=== PATIENT | female | born 1980 | race African-American/Black ===

== ENCOUNTER 2017-05-22 18:11 | Inpatient (IN) | payer MEDICAID ==
[~2017-05-22] VITALS: Ht 162.6 cm; Wt 47.7 kg
[~2017-05-22 18:11] MED LIST: HYDR-1421
[2017-05-22 20:12] LABS: Basophils # (auto) 0.1 uL; Eosinophils # (auto) 0 uL; Hemoglobin 10.7 g/dL (12.2-16.2); Lymphocytes # (auto) 1.2 uL; Mean Corpuscular Hgb Conc. 34.6 g/dL (32.0-36.0); Monocytes # (auto) 0.6 uL; Nucleated Red Blood Cells % 0.2 %; Platelet Count (auto) 420 10^3/uL (140-450)
[2017-05-22 20:14] LABS: Basophils % (auto) 0.9 % (0.0-2.0); Hematocrit 30.9 % (36.0-46.0); Lymphocytes % (auto) 14.3 % (10.0-50.0); Mean Corpuscular Hemoglobin 36.2 pg (28.0-32.0); Mean Corpuscular Volume 104.6 fL (80.0-100.0); Monocytes % (auto) 7.8 % (0.0-12.0); Neutrophils # (auto) 6.3 uL; Red Blood Cells 2.96 10^6/uL (4.0-5.20); Red Cell Distribution Width 13.7 % (11.8-14.3); White Blood Cell 8.2 10^3/uL (4.4-10.8)
[2017-05-22 20:30] LABS: Albumin 3.5 g/dL (3.4-5.0); BUN/Creatinine Ratio 10.8; Calcium 9.3 mg/dL (8.5-10.1); Potassium 3.5 mmol/L (3.5-5.1)
[2017-05-22 20:33] LABS: Bilirubin, Total 2.5 mg/dL (0.2-1.0); Total Protein 6.9 g/dL (6.4-8.2)
[2017-05-23] MEDS ORDERED: SODIUM CHLORIDE 0.9% 1,000 ML IV ONE (05:59)
[2017-05-23] MEDS ORDERED: cefTRIAXone 1GM/10ml IVPUSH 10 ML IV ONE (09:45)
[2017-05-23] MEDS ORDERED: HYDROcodone-ACET 5/325MG TAB PO PRN (09:45)
[2017-05-23] MEDS ORDERED: ACETAMINOPHEN 325 MG TAB PO PRN (09:45)
[2017-05-23] MEDS ORDERED: MORPHINE SULFATE 10 MG/ML INJ 1ML SDV IV PRN (09:45)
[2017-05-23] MEDS ORDERED: NITROGLYCERIN 0.4 MG SL TAB SL PRN (09:45)
[2017-05-23] MEDS: MULTIPLE VITAMIN TAB PO SCH (10:00)
[2017-05-23] MEDS ORDERED: FAMOTIDINE (10MG/ML) 2ML VL IV SCH (10:00)
[2017-05-23 10:30] VITALS: BP 119/86
[2017-05-23] MEDS: PANTOPRAZOLE 40 MG/10 ML VIAL IV SCH (11:12)
[2017-05-23] MEDS: ONDANSETRON HCL 4 MG/2 ML VIAL IV PRN ×2 (11:13→16:51)
[2017-05-23] MEDS: MORPHINE SULFATE 10 MG/ML INJ 1ML SDV IV PRN ×2 (11:13→19:06)
[2017-05-23] MEDS: SODIUM CHLORIDE 0.9% 1,000 ML IV SCH ×2 (11:14→18:02)
[2017-05-23] MEDS: metroNIDAZOLE 500MG/100ML 100 ML IV SCH ×2 (11:14→18:01)
[2017-05-23 11:37] VITALS: BP 119/86
[2017-05-23] MEDS ORDERED: INFLUENZA QUAD 2017-2018 0.5 ML SYRG IM ONE (12:45)
[2017-05-23] MEDS ORDERED: FAM20T PO (12:48)
[2017-05-23] MEDS ORDERED: HYDR-531 PO (12:48)
[2017-05-23 13:47] LABS: Hematocrit 30.5 % (36.0-46.0); Hemoglobin 10.6 g/dL (12.2-16.2)
[2017-05-23 13:54] LABS: Amylase 60 U/L (25-115); Lipase 143 U/L (73-393)
[2017-05-23 13:56] LABS: INR 0.92 (0.9-1.15); Partial Thromboplastin Time 22.9 sec (22.64-33.71)
[2017-05-23 16:40] VITALS: BP 114/64
[2017-05-23 19:41] LABS: Hematocrit 29.3 % (36.0-46.0); Hemoglobin 10.3 g/dL (12.2-16.2)
[2017-05-23 20:00] VITALS: BP 127/74
[2017-05-23 22:00] VITALS: BP 127/74
[2017-05-24] VITALS (7 sets, daily range): BP systolic 114–123; BP diastolic 64–84
[2017-05-24] MEDS: MORPHINE SULFATE 10 MG/ML INJ 1ML SDV IV PRN ×4 (01:30→21:48)
[2017-05-24] MEDS: SODIUM CHLORIDE 0.9% 1,000 ML IV SCH ×3 (01:31→22:08)
[2017-05-24] MEDS: metroNIDAZOLE 500MG/100ML 100 ML IV SCH ×3 (02:28→18:23)
[2017-05-24] MEDS: ONDANSETRON HCL 4 MG/2 ML VIAL IV PRN ×4 (08:45→21:48)
[2017-05-24] MEDS: PANTOPRAZOLE 40 MG/10 ML VIAL IV SCH (09:51)
[2017-05-24] MEDS: cefTRIAXone 1GM/10ml IVPUSH 10 ML IV SCH (09:51)
[2017-05-24] MEDS: MULTIPLE VITAMIN TAB PO SCH (10:00)
[2017-05-24] MEDS ORDERED: MILK OF MAGNESIA 30ML SUSP PO ONE (11:45)
[2017-05-24] MEDS ORDERED: FLEET ENEMA(ADULT) 135 ML PR ONE (11:45)
[2017-05-24 15:32] LABS: Basophils # (auto) 0 uL; Eosinophils # (auto) 0 uL; Hemoglobin 10.2 g/dL (12.2-16.2); Monocytes # (auto) 0.4 uL; White Blood Cell 6.1 10^3/uL (4.4-10.8)
[2017-05-24 15:34] LABS: Basophils % (auto) 0.3 % (0.0-2.0); Hematocrit 29.1 % (36.0-46.0); Lymphocytes # (auto) 0.7 uL; Mean Corpuscular Hemoglobin 36.2 pg (28.0-32.0); Mean Corpuscular Volume 103.2 fL (80.0-100.0); Monocytes % (auto) 7.2 % (0.0-12.0); Neutrophils % (auto) 81.5 % (37.0-80.0); Nucleated Red Blood Cells % 0.1 %; Platelet Count (auto) 438 10^3/uL (140-450); Red Blood Cells 2.82 10^6/uL (4.0-5.20); Red Cell Distribution Width 13.2 % (11.8-14.3)
[2017-05-24 15:51] LABS: % Iron Saturation 7.7 % (15-50)
[2017-05-24 15:56] LABS: Albumin 3.2 g/dL (3.4-5.0); Bilirubin, Total 4.1 mg/dL (0.2-1.0); Calcium 8.4 mg/dL (8.5-10.1); Total Protein 6.4 g/dL (6.4-8.2)
[2017-05-24 16:45] LABS: Potassium 2.9 mmol/L (3.5-5.1)
[2017-05-24] MEDS: SUCRALFATE 1 GM/10 ML ORAL SUSP PO SCH ×2 (17:00→22:08)
[2017-05-24] MEDS ORDERED: POTASSIUM CHLORIDE 40 MEQ, LIDOCAINE 1% (LOCAL ANESTH.) 4 ML in SODIUM CHL 0.9% 100 ML IV ONE (17:00)
[2017-05-24] MEDS: TEMAZEPAM 15 MG CAP PO PRN (23:37)
[2017-05-25] MEDS: metroNIDAZOLE 500MG/100ML 100 ML IV SCH ×3 (03:17→18:29)
[2017-05-25] MEDS: ONDANSETRON HCL 4 MG/2 ML VIAL IV PRN ×4 (03:19→22:13)
[2017-05-25] MEDS: MORPHINE SULFATE 10 MG/ML INJ 1ML SDV IV PRN ×4 (04:26→22:14)
[2017-05-25 05:00] VITALS: BP 103/68
[2017-05-25] MEDS: SUCRALFATE 1 GM/10 ML ORAL SUSP PO SCH ×4 (06:39→22:00)
[2017-05-25] MEDS ORDERED: SODIUM CHLORIDE LOCK 10 ML ONE (08:09)
[2017-05-25] MEDS: SODIUM CHLORIDE 0.9% 1,000 ML IV SCH ×2 (08:43→18:19)
[2017-05-25 09:09] VITALS: BP 122/70
[2017-05-25] MEDS ORDERED: INFLUENZA QUAD 2017-2018 0.5 ML SYRG IM ONE (10:00)
[2017-05-25] MEDS: MULTIPLE VITAMIN TAB PO SCH (10:00)
[2017-05-25] MEDS: PANTOPRAZOLE 40 MG/10 ML VIAL IV SCH ×2 (10:17→22:14)
[2017-05-25] MEDS: cefTRIAXone 1GM/10ml IVPUSH 10 ML IV SCH (10:17)
[2017-05-25 10:25] LABS: Hepatitis B Surface Antibody Negative
[2017-05-25 10:35] LABS: Hepatitis B Surface Antigen Negative (Negative)
[2017-05-25 11:02] LABS: Hepatitis C Antibody Negative (Negative)
[2017-05-25 11:03] LABS: Hepatitis A Total Antibody Negative; Hepatitis B Core Total AB Negative
[2017-05-25] MEDS: LIDOCAINE VISCOUS 2% 15ML UD ONE ×2 (11:53→12:15)
[2017-05-25] MEDS: fentaNYL CITRATE 100 MCG/2 ML VL ONE ×4 (11:55→12:20)
[2017-05-25] MEDS: MIDAZOLAM HCL 5 MG/ML-1ML VIAL ONE ×4 (11:55→12:20)
[2017-05-25] MEDS: diphenhdrAMINE HCL 50 MG/1 ML VL ONE ×2 (11:57→12:19)
[2017-05-25 12:06] VITALS: BP 117/70
[2017-05-25] MEDS ORDERED: POTASSIUM CHLORIDE 20 MEQ, LIDOCAINE 1% (LOCAL ANESTH.) 2 ML in SODIUM CHL 0.9% 100 ML IV ONE (13:30)
[2017-05-25 17:05] VITALS: BP 122/74
[2017-05-25 19:06] LABS: Basophils # (auto) 0 uL; Eosinophils # (auto) 0 uL; Mean Corpuscular Hemoglobin 35.9 pg (28.0-32.0); Nucleated Red Blood Cells % 0.1 %; Platelet Count (auto) 471 10^3/uL (140-450); Red Blood Cells 3.07 10^6/uL (4.0-5.20); White Blood Cell 6.2 10^3/uL (4.4-10.8)
[2017-05-25 19:08] LABS: Basophils % (auto) 0.5 % (0.0-2.0); Hematocrit 31.8 % (36.0-46.0); Lymphocytes # (auto) 0.9 uL; Lymphocytes % (auto) 13.7 % (10.0-50.0); Mean Corpuscular Hgb Conc. 34.7 g/dL (32.0-36.0); Mean Corpuscular Volume 103.5 fL (80.0-100.0); Monocytes # (auto) 0.4 uL; Monocytes % (auto) 7.1 % (0.0-12.0); Neutrophils # (auto) 4.9 uL; Neutrophils % (auto) 78.7 % (37.0-80.0); Red Cell Distribution Width 13.7 % (11.8-14.3)
[2017-05-25 19:15] LABS: INR 0.92 (0.9-1.15)
[2017-05-25 19:24] LABS: Albumin 3.4 g/dL (3.4-5.0); BUN/Creatinine Ratio 5.3; Calcium 8.4 mg/dL (8.5-10.1); Magnesium 2.4 mg/dL (1.6-2.6); Potassium 3.6 mmol/L (3.5-5.1); Total Protein 6.6 g/dL (6.4-8.2)
[2017-05-25 21:45] VITALS: BP 127/79
[2017-05-26] MEDS: MORPHINE SULFATE 10 MG/ML INJ 1ML SDV IV PRN ×3 (02:19→20:39)
[2017-05-26] MEDS: ONDANSETRON HCL 4 MG/2 ML VIAL IV PRN ×3 (02:20→20:40)
[2017-05-26] MEDS: metroNIDAZOLE 500MG/100ML 100 ML IV SCH ×3 (03:10→18:40)
[2017-05-26] MEDS: SODIUM CHLORIDE 0.9% 1,000 ML IV SCH ×2 (04:20→15:15)
[2017-05-26 04:38] VITALS: BP 112/74
[2017-05-26 06:26] LABS: Hemoglobin 9.2 g/dL (12.2-16.2)
[2017-05-26] MEDS: SUCRALFATE 1 GM/10 ML ORAL SUSP PO SCH ×4 (06:26→23:50)
[2017-05-26 06:28] LABS: Hematocrit 26.3 % (36.0-46.0)
[2017-05-26 06:43] LABS: Potassium 3.4 mmol/L (3.5-5.1)
[2017-05-26 06:44] LABS: Magnesium 2.1 mg/dL (1.6-2.6)
[2017-05-26 07:35] VITALS: BP 122/73
[2017-05-26 08:28] VITALS: BP 122/73
[2017-05-26] MEDS: MULTIPLE VITAMIN TAB PO SCH (09:36)
[2017-05-26] MEDS: cefTRIAXone 1GM/10ml IVPUSH 10 ML IV SCH (09:37)
[2017-05-26] MEDS: PANTOPRAZOLE 40 MG/10 ML VIAL IV SCH ×2 (09:37→23:50)
[2017-05-26] MEDS ORDERED: POTASSIUM CHL 20MEQ/100ML 100 ML IV SCH (10:15)
[2017-05-26] MEDS ORDERED: POTASSIUM CHLORIDE 20 MEQ, LIDOCAINE 1% (LOCAL ANESTH.) 2 ML in SODIUM CHL 0.9% 100 ML IV ONE (11:45)
[2017-05-26 12:11] VITALS: BP 131/76
[2017-05-26] MEDS ORDERED: D5W 5% IV ONE (12:15)
[2017-05-26] MEDS ORDERED: POTASSIUM CHLORIDE IV ONE (12:15)
[2017-05-26] MEDS ORDERED: LIDOCAINE 1% IV ONE (12:15)
[2017-05-26] MEDS ORDERED: LACTULOSE 20Gm/30ML SOLN PO PRN (13:45)
[2017-05-26 16:48] VITALS: BP 128/83
[2017-05-26 22:00] VITALS: BP 133/76
[2017-05-27] MEDS: metroNIDAZOLE 500MG/100ML 100 ML IV SCH ×3 (04:15→18:33)
[2017-05-27] MEDS: ONDANSETRON HCL 4 MG/2 ML VIAL IV PRN ×2 (04:46→23:32)
[2017-05-27] MEDS: MORPHINE SULFATE 10 MG/ML INJ 1ML SDV IV PRN ×4 (04:48→23:33)
[2017-05-27 05:00] VITALS: BP 143/82
[2017-05-27] MEDS: SUCRALFATE 1 GM/10 ML ORAL SUSP PO SCH ×4 (07:00→23:28)
[2017-05-27 08:00] VITALS: BP 138/76
[2017-05-27 08:33] LABS: Basophils # (auto) 0 uL; Basophils % (auto) 0.5 % (0.0-2.0); Eosinophils # (auto) 0 uL; Hemoglobin 10.2 g/dL (12.2-16.2); Lymphocytes # (auto) 0.7 uL; Monocytes # (auto) 0.4 uL; Monocytes % (auto) 6.3 % (0.0-12.0)
[2017-05-27 08:36] LABS: Hematocrit 29.6 % (36.0-46.0); Lymphocytes % (auto) 10.2 % (10.0-50.0); Mean Corpuscular Hemoglobin 35.1 pg (28.0-32.0); Mean Corpuscular Hgb Conc. 34.6 g/dL (32.0-36.0); Mean Corpuscular Volume 101.4 fL (80.0-100.0); Neutrophils # (auto) 5.3 uL; Nucleated Red Blood Cells % 0.1 %; Platelet Count (auto) 468 10^3/uL (140-450); Red Blood Cells 2.91 10^6/uL (4.0-5.20); Red Cell Distribution Width 13.9 % (11.8-14.3); White Blood Cell 6.4 10^3/uL (4.4-10.8)
[2017-05-27 08:46] LABS: Albumin 2.9 g/dL (3.4-5.0); BUN/Creatinine Ratio 4.5; Bilirubin, Total 5.6 mg/dL (0.2-1.0); Calcium 8.2 mg/dL (8.5-10.1); Potassium 3.4 mmol/L (3.5-5.1); Total Protein 5.8 g/dL (6.4-8.2)
[2017-05-27 08:55] LABS: Albumin 2.8 g/dL (3.4-5.0); Bilirubin, Direct 5.1 mg/dL (0-0.2); Bilirubin, Total 5.6 mg/dL (0.2-1.0); Total Protein 5.9 g/dL (6.4-8.2)
[2017-05-27 08:56] VITALS: BP 138/76
[2017-05-27] MEDS: cefTRIAXone 1GM/10ml IVPUSH 10 ML IV SCH (08:59)
[2017-05-27] MEDS ORDERED: POTASSIUM CHL 20 Meq TABLET PO ONE (10:45)
[2017-05-27] MEDS: PANTOPRAZOLE 40 MG/10 ML VIAL IV SCH ×2 (11:43→23:29)
[2017-05-27] MEDS: SODIUM CHLORIDE 0.9% 1,000 ML IV SCH ×2 (11:43)
[2017-05-27 13:10] VITALS: BP 132/78
[2017-05-27] MEDS: MULTIPLE VITAMIN TAB PO SCH (13:50)
[2017-05-27 17:00] VITALS: BP 119/70
[2017-05-27 22:00] VITALS: BP 128/78
[2017-05-28] MEDS: SODIUM CHLORIDE 0.9% 1,000 ML IV SCH ×2 (01:03→07:05)
[2017-05-28] MEDS: MORPHINE SULFATE 10 MG/ML INJ 1ML SDV IV PRN ×3 (02:50→21:31)
[2017-05-28] MEDS: ONDANSETRON HCL 4 MG/2 ML VIAL IV PRN ×2 (02:51→21:30)
[2017-05-28] MEDS: metroNIDAZOLE 500MG/100ML 100 ML IV SCH ×3 (03:03→19:39)
[2017-05-28 05:00] VITALS: BP 134/68
[2017-05-28] MEDS: SUCRALFATE 1 GM/10 ML ORAL SUSP PO SCH ×4 (06:58→21:32)
[2017-05-28 07:28] LABS: Albumin 2.8 g/dL (3.4-5.0); Bilirubin, Direct 5.4 mg/dL (0-0.2); Bilirubin, Total 6.1 mg/dL (0.2-1.0); Potassium 3.3 mmol/L (3.5-5.1); Total Protein 5.9 g/dL (6.4-8.2)
[2017-05-28 08:00] VITALS: BP 128/73
[2017-05-28 09:00] VITALS: BP 128/73
[2017-05-28 09:21] LABS: Hepatitis B Surface Antigen Negative (Negative)
[2017-05-28 09:34] LABS: Hepatitis C Antibody Negative (Negative)
[2017-05-28 09:35] LABS: Hepatitis B Core IgM Negative
[2017-05-28 09:36] LABS: Hepatitis A Ab IgM Negative
[2017-05-28] MEDS: cefTRIAXone 1GM/10ml IVPUSH 10 ML IV SCH (10:03)
[2017-05-28] MEDS: MULTIPLE VITAMIN TAB PO SCH (10:03)
[2017-05-28] MEDS: PANTOPRAZOLE 40 MG/10 ML VIAL IV SCH ×2 (10:03→21:31)
[2017-05-28] MEDS ORDERED: POTASSIUM CHL 20 Meq TABLET PO ONE (10:15)
[2017-05-28 13:00] VITALS: BP 133/76
[2017-05-28 17:00] VITALS: BP 130/73
[2017-05-28] MEDS: TEMAZEPAM 15 MG CAP PO PRN (21:35)
[2017-05-28 22:00] VITALS: BP 156/89
[2017-05-29] MEDS: metroNIDAZOLE 500MG/100ML 100 ML IV SCH ×3 (04:00→18:30)
[2017-05-29] MEDS ORDERED: MORPHINE SULF INJ 2 MG/ML SYRINGE 1ML ONE (04:32)
[2017-05-29 04:48] VITALS: BP 148/77
[2017-05-29] MEDS: SODIUM CHLORIDE 0.9% 1,000 ML IV SCH ×2 (05:33→12:19)
[2017-05-29] MEDS: ONDANSETRON HCL 4 MG/2 ML VIAL IV PRN ×4 (05:34→22:54)
[2017-05-29 07:08] LABS: Albumin 2.8 g/dL (3.4-5.0); Bilirubin, Direct 5.2 mg/dL (0-0.2); Bilirubin, Total 5.7 mg/dL (0.2-1.0); Potassium 3.4 mmol/L (3.5-5.1); Total Protein 5.7 g/dL (6.4-8.2)
[2017-05-29] MEDS: SUCRALFATE 1 GM/10 ML ORAL SUSP PO SCH ×4 (07:17→22:42)
[2017-05-29 09:00] VITALS: BP 119/74
[2017-05-29] MEDS: MULTIPLE VITAMIN TAB PO SCH (10:11)
[2017-05-29] MEDS: PANTOPRAZOLE 40 MG/10 ML VIAL IV SCH ×2 (10:11→22:42)
[2017-05-29] MEDS: cefTRIAXone 1GM/10ml IVPUSH 10 ML IV SCH (10:11)
[2017-05-29] MEDS ORDERED: POTASSIUM CHL 20 Meq TABLET PO ONE (11:45)
[2017-05-29 13:00] VITALS: BP 125/88
[2017-05-29] MEDS: MORPHINE SULFATE 10 MG/ML INJ 1ML SDV IV PRN (13:30)
[2017-05-29] MEDS ORDERED: INFLUENZA QUAD 2017-2018 0.5 ML SYRG IM ONE (15:30)
[2017-05-29] MEDS ORDERED: [UNRECOGNIZED DRUG - CODE] PO (16:26)
[2017-05-29 16:51] VITALS: BP 140/80
[2017-05-29] MEDS: MORPHINE SULF INJ 2 MG/ML SYRINGE 1ML IV PRN (21:20)
[2017-05-29 22:22] VITALS: BP 128/71
[2017-05-29] MEDS: TEMAZEPAM 15 MG CAP PO PRN (22:54)
[2017-05-30] MEDS: metroNIDAZOLE 500MG/100ML 100 ML IV SCH ×3 (03:15→18:25)
[2017-05-30] MEDS: SODIUM CHLORIDE 0.9% 1,000 ML IV SCH ×3 (04:25→17:55)
[2017-05-30 05:31] VITALS: BP 114/63
[2017-05-30] MEDS: SUCRALFATE 1 GM/10 ML ORAL SUSP PO SCH ×5 (06:43→23:46)
[2017-05-30] MEDS ORDERED: KETAMINE HCL 1 ML ONE (07:25)
[2017-05-30] MEDS ORDERED: ONDANSETRON HCL 4 MG/2 ML VIAL IV ONE (07:25)
[2017-05-30] MEDS ORDERED: fentaNYL CITRATE 100 MCG/2 ML VL ONE (07:25)
[2017-05-30] MEDS ORDERED: MIDAZOLAM HCL 1MG/1ML-2 ML VIAL ONE (07:25)
[2017-05-30] MEDS ORDERED: ROCURONIUM 10MG/ML 10ML VIAL IV ONE (07:25)
[2017-05-30] MEDS ORDERED: SODIUM CHLORIDE LOCK 10 ML ONE (07:25)
[2017-05-30] MEDS ORDERED: PROPOFOL 10 MG/ML 20 ML IV ONE ×2 (07:25→09:22)
[2017-05-30] MEDS ORDERED: IOHEXOL 300 MG/ML 100ML BOTTLE IJ ONE (07:35)
[2017-05-30 08:19] LABS: Basophils # (auto) 0.1 uL; Basophils % (auto) 1.1 % (0.0-2.0); Eosinophils # (auto) 0 uL; Hematocrit 30.3 % (36.0-46.0); Hemoglobin 10.5 g/dL (12.2-16.2); Lymphocytes # (auto) 0.9 uL; Lymphocytes % (auto) 10.6 % (10.0-50.0); Mean Corpuscular Hemoglobin 34.3 pg (28.0-32.0); Mean Corpuscular Hgb Conc. 34.8 g/dL (32.0-36.0); Mean Corpuscular Volume 98.6 fL (80.0-100.0); Monocytes # (auto) 0.6 uL; Monocytes % (auto) 7.8 % (0.0-12.0); Neutrophils # (auto) 6.6 uL; Neutrophils % (auto) 80.5 % (37.0-80.0); Nucleated Red Blood Cells % 0.1 %; Platelet Count (auto) 551 10^3/uL (140-450); Red Blood Cells 3.07 10^6/uL (4.0-5.20); Red Cell Distribution Width 15.1 % (11.8-14.3); White Blood Cell 8.1 10^3/uL (4.4-10.8)
[2017-05-30 08:42] LABS: Albumin 2.8 g/dL (3.4-5.0); BUN/Creatinine Ratio 4.8; Bilirubin, Total 6.7 mg/dL (0.2-1.0); Calcium 8.5 mg/dL (8.5-10.1); Magnesium 2.2 mg/dL (1.6-2.6); Potassium 3.4 mmol/L (3.5-5.1); Total Protein 5.9 g/dL (6.4-8.2)
[2017-05-30 09:00] VITALS: BP 113/78
[2017-05-30] MEDS ORDERED: METOCLOPRAMIDE HCL 5MG/ml INJ 2ml VIAL ONE (10:15)
[2017-05-30] MEDS ORDERED: KETOROLAC TROMETH 30 MG/ML 1ML VIAL IV ONE (10:30)
[2017-05-30] MEDS ORDERED: METOCLOPRAMIDE HCL 5MG/ml INJ 2ml VIAL IV ONE (10:30)
[2017-05-30] MEDS ORDERED: HYDROmorphone HCL 2 MG/ML VL IV PRN (10:30)
[2017-05-30] MEDS ORDERED: SODIUM CHLORIDE 0.9% 1,000 ML IV SCH (11:15)
[2017-05-30] MEDS ORDERED: MORPHINE SULF INJ 2 MG/ML SYRINGE 1ML IV ONE (12:00)
[2017-05-30] MEDS: MORPHINE SULF INJ 2 MG/ML SYRINGE 1ML IV PRN ×3 (12:09→23:47)
[2017-05-30] MEDS: PANTOPRAZOLE 40 MG/10 ML VIAL IV SCH ×2 (12:09→23:46)
[2017-05-30] MEDS: MULTIPLE VITAMIN TAB PO SCH (12:10)
[2017-05-30] MEDS: cefTRIAXone 1GM/10ml IVPUSH 10 ML IV SCH (12:11)
[2017-05-30 13:00] VITALS: BP 155/78
[2017-05-30] MEDS ORDERED: POTASSIUM CHLORIDE 20 MEQ, LIDOCAINE 1% (LOCAL ANESTH.) 2 ML in SODIUM CHL 0.9% 100 ML IV ONE (13:00)
[2017-05-30 17:38] VITALS: BP 137/81
[2017-05-30 22:00] VITALS: BP 122/74
[2017-05-30] MEDS ORDERED: MORPHINE SULF INJ 2 MG/ML SYRINGE 1ML ONE (23:36)
[2017-05-30] MEDS: TEMAZEPAM 15 MG CAP PO PRN (23:46)
[2017-05-31] MEDS: SODIUM CHLORIDE 0.9% 1,000 ML IV SCH ×4 (01:01→20:35)
[2017-05-31] MEDS: metroNIDAZOLE 500MG/100ML 100 ML IV SCH ×3 (02:46→17:44)
[2017-05-31 04:44] VITALS: BP 122/80
[2017-05-31 06:10] LABS: Eosinophils # (auto) 0 uL; Hemoglobin 10.6 g/dL (12.2-16.2); Monocytes # (auto) 0.8 uL
[2017-05-31 06:13] LABS: Basophils # (auto) 0 uL; Basophils % (auto) 0.5 % (0.0-2.0); Hematocrit 30.1 % (36.0-46.0); Lymphocytes % (auto) 11.2 % (10.0-50.0); Mean Corpuscular Hemoglobin 34.3 pg (28.0-32.0); Mean Corpuscular Hgb Conc. 35.2 g/dL (32.0-36.0); Mean Corpuscular Volume 97.4 fL (80.0-100.0); Neutrophils # (auto) 7.1 uL; Neutrophils % (auto) 79.3 % (37.0-80.0); Nucleated Red Blood Cells % 0.2 %; Platelet Count (auto) 518 10^3/uL (140-450); Red Cell Distribution Width 15.4 % (11.8-14.3)
[2017-05-31 06:38] LABS: Albumin 2.6 g/dL (3.4-5.0); Bilirubin, Total 7.4 mg/dL (0.2-1.0); Calcium 8.2 mg/dL (8.5-10.1); Potassium 3.4 mmol/L (3.5-5.1); Total Protein 5.5 g/dL (6.4-8.2)
[2017-05-31 09:00] VITALS: BP 128/76
[2017-05-31] MEDS: cefTRIAXone 1GM/10ml IVPUSH 10 ML IV SCH (10:01)
[2017-05-31] MEDS: PANTOPRAZOLE 40 MG/10 ML VIAL IV SCH ×2 (10:02→23:45)
[2017-05-31] MEDS: MULTIPLE VITAMIN TAB PO SCH (10:02)
[2017-05-31] MEDS: SUCRALFATE 1 GM/10 ML ORAL SUSP PO SCH ×3 (11:57→22:00)
[2017-05-31 13:00] VITALS: BP 143/88
[2017-05-31 22:00] VITALS: BP 131/70
[2017-05-31] MEDS: MORPHINE SULF INJ 2 MG/ML SYRINGE 1ML IV PRN (23:46)
[2017-05-31] MEDS: ONDANSETRON HCL 4 MG/2 ML VIAL IV PRN (23:58)
[2017-06-01] MEDS: SODIUM CHLORIDE 0.9% 1,000 ML IV SCH ×4 (03:17→23:04)
[2017-06-01] MEDS: metroNIDAZOLE 500MG/100ML 100 ML IV SCH ×3 (03:19→19:45)
[2017-06-01 05:00] VITALS: BP 129/74
[2017-06-01] MEDS: SUCRALFATE 1 GM/10 ML ORAL SUSP PO SCH ×4 (06:17→22:00)
[2017-06-01 06:45] LABS: Eosinophils # (auto) 0 uL; Lymphocytes # (auto) 0.7 uL; Monocytes # (auto) 0.8 uL; Neutrophils # (auto) 7.6 uL; White Blood Cell 9.2 10^3/uL (4.4-10.8)
[2017-06-01 06:49] LABS: Basophils # (auto) 0 uL; Basophils % (auto) 0.4 % (0.0-2.0); Hematocrit 30.8 % (36.0-46.0); Hemoglobin 10.8 g/dL (12.2-16.2); Monocytes % (auto) 9.2 % (0.0-12.0); Neutrophils % (auto) 82.4 % (37.0-80.0); Nucleated Red Blood Cells % 0.2 %; Platelet Count (auto) 530 10^3/uL (140-450); Red Blood Cells 3.18 10^6/uL (4.0-5.20); Red Cell Distribution Width 15.5 % (11.8-14.3)
[2017-06-01 07:13] LABS: Albumin 2.6 g/dL (3.4-5.0); BUN/Creatinine Ratio 3.6; Bilirubin, Total 7.6 mg/dL (0.2-1.0); Calcium 8.1 mg/dL (8.5-10.1); Magnesium 2.1 mg/dL (1.6-2.6); Phosphorus 2.9 mg/dL (2.5-4.90); Potassium 3.1 mmol/L (3.5-5.1); Total Protein 5.8 g/dL (6.4-8.2)
[2017-06-01 09:00] VITALS: BP 121/63
[2017-06-01] MEDS: MULTIPLE VITAMIN TAB PO SCH (10:38)
[2017-06-01] MEDS: cefTRIAXone 1GM/10ml IVPUSH 10 ML IV SCH (10:40)
[2017-06-01] MEDS: PANTOPRAZOLE 40 MG/10 ML VIAL IV SCH ×2 (10:40→22:00)
[2017-06-01 13:00] VITALS: BP 133/87
[2017-06-01] MEDS ORDERED: TEMAZEPAM 15 MG CAP PO PRN (13:00)
[2017-06-01] MEDS: POTASSIUM CHL 20MEQ/100ML 100 ML IV SCH ×2 (14:01→17:22)
[2017-06-01 17:00] VITALS: BP 136/76
[2017-06-01] MEDS: MORPHINE SULF INJ 2 MG/ML SYRINGE 1ML IV PRN (17:28)
[2017-06-01] MEDS: BOOST 8 ounces PO SCH (18:29)
[2017-06-01] MEDS: ONDANSETRON HCL 4 MG/2 ML VIAL IV PRN (22:38)
[2017-06-01 22:44] VITALS: BP 135/90
[2017-06-02] MEDS: metroNIDAZOLE 500MG/100ML 100 ML IV SCH ×3 (03:27→17:47)
[2017-06-02 05:40] VITALS: BP 130/78
[2017-06-02] MEDS: SUCRALFATE 1 GM/10 ML ORAL SUSP PO SCH ×4 (06:10→22:29)
[2017-06-02 07:12] LABS: Albumin 2.5 g/dL (3.4-5.0); Bilirubin, Direct 6.8 mg/dL (0-0.2); Bilirubin, Total 7.5 mg/dL (0.2-1.0); Potassium 3.2 mmol/L (3.5-5.1); Total Protein 5.9 g/dL (6.4-8.2)
[2017-06-02] MEDS: cefTRIAXone 1GM/10ml IVPUSH 10 ML IV SCH (09:04)
[2017-06-02 09:10] VITALS: BP 143/82
[2017-06-02] MEDS: PANTOPRAZOLE 40 MG/10 ML VIAL IV SCH ×2 (10:26→22:29)
[2017-06-02] MEDS: MULTIPLE VITAMIN TAB PO SCH (10:26)
[2017-06-02] MEDS: BOOST 8 ounces PO SCH ×2 (11:06→17:48)
[2017-06-02] MEDS ORDERED: POTASSIUM CHL 20 Meq TABLET PO ONE (12:15)
[2017-06-02] MEDS: SODIUM CHLORIDE 0.9% 1,000 ML IV SCH (13:17)
[2017-06-02 17:55] VITALS: BP 117/79
[2017-06-02 22:00] VITALS: BP 140/85
[2017-06-02] MEDS ORDERED: MEPERIDINE HCL (25 MG/ML) 1ML VIAL IV ONE (22:30)
[2017-06-02] MEDS: ONDANSETRON HCL 4 MG/2 ML VIAL IV PRN (22:54)
[2017-06-03] MEDS: SODIUM CHLORIDE 0.9% 1,000 ML IV SCH ×2 (02:33→16:51)
[2017-06-03] MEDS: metroNIDAZOLE 500MG/100ML 100 ML IV SCH ×3 (02:55→18:03)
[2017-06-03] MEDS: SUCRALFATE 1 GM/10 ML ORAL SUSP PO SCH ×4 (05:26→21:16)
[2017-06-03] MEDS: ONDANSETRON HCL 4 MG/2 ML VIAL IV PRN ×3 (05:29→21:16)
[2017-06-03 06:05] VITALS: BP 118/93
[2017-06-03] MEDS: BOOST 8 ounces PO SCH ×2 (08:00→18:00)
[2017-06-03 08:09] LABS: Albumin 2.4 g/dL (3.4-5.0); Bilirubin, Direct 7.3 mg/dL (0-0.2); Bilirubin, Total 8.2 mg/dL (0.2-1.0); Potassium 3.6 mmol/L (3.5-5.1); Total Protein 5.8 g/dL (6.4-8.2)
[2017-06-03 09:00] VITALS: BP 145/84
[2017-06-03] MEDS: cefTRIAXone 1GM/10ml IVPUSH 10 ML IV SCH (10:32)
[2017-06-03] MEDS: PANTOPRAZOLE 40 MG/10 ML VIAL IV SCH ×2 (10:33→21:16)
[2017-06-03] MEDS: MULTIPLE VITAMIN TAB PO SCH (10:33)
[2017-06-03] MEDS: POTASSIUM CHL 20 Meq TABLET PO ONE ×2 (11:45→12:05)
[2017-06-03] MEDS: HYDROcodone-ACET 5/325MG TAB PO PRN (12:05)
[2017-06-03 13:00] VITALS: BP 127/83
[2017-06-03 17:32] VITALS: BP 133/74
[2017-06-03] MEDS ORDERED: MEPERIDINE HCL (25 MG/ML) 1ML VIAL IV ONE (21:15)
[2017-06-03 22:00] VITALS: BP 133/78
[2017-06-04] MEDS: metroNIDAZOLE 500MG/100ML 100 ML IV SCH ×3 (02:39→17:09)
[2017-06-04 05:18] VITALS: BP 132/81
[2017-06-04] MEDS: SODIUM CHLORIDE 0.9% 1,000 ML IV SCH (07:09)
[2017-06-04] MEDS: SUCRALFATE 1 GM/10 ML ORAL SUSP PO SCH ×4 (08:38→21:14)
[2017-06-04] MEDS: HYDROcodone-ACET 5/325MG TAB PO PRN ×2 (08:39→13:56)
[2017-06-04] MEDS: BOOST 8 ounces PO SCH ×2 (08:40→18:30)
[2017-06-04 09:00] VITALS: BP 135/85
[2017-06-04] MEDS ORDERED: cefTRIAXone 1GM/10ml IVPUSH 10 ML IV SCH (09:00)
[2017-06-04] MEDS: MULTIPLE VITAMIN TAB PO SCH (10:28)
[2017-06-04] MEDS: PANTOPRAZOLE 40 MG/10 ML VIAL IV SCH ×2 (10:28→21:14)
[2017-06-04] MEDS ORDERED: ACETAMINOPHEN 325 MG TAB PO PRN (12:45)
[2017-06-04 13:00] VITALS: BP 121/85
[2017-06-04] MEDS: ONDANSETRON HCL 4 MG/2 ML VIAL IV PRN ×2 (13:56→18:27)
[2017-06-04] MEDS ORDERED: ARTIFICIAL TEARS 15ml EACHEYE PRN (17:00)
[2017-06-04] MEDS ORDERED: MORPHINE SULFATE 4 MG/ML SYR/VIAL IV PRN (20:00)
[2017-06-05] MEDS ORDERED: MULTIPLE VITAMIN TAB PO SCH (10:00)
== END 2017-06-04 21:45 | disposition short-term general hospital (02) | DRG 229 ==
LOC: ER 18:11 → TELE 18:12 → TELE-EAST 05-23 10:24
PROVIDERS: ADMIT Internal Medicine; ATTEND Internal Medicine
PROC: 0DJ08ZZ Inspection of Upper Intestinal Tract, Via Natural or Artificial Opening Endoscopic (ICD-10-PCS; principal; 2017-05-25 11:50)
PROC: 0FJB8ZZ Inspection of Hepatobiliary Duct, Via Natural or Artificial Opening Endoscopic (ICD-10-PCS; 2017-05-30)
PROC: BF181ZZ Fluoroscopy of Pancreatic Ducts using Low Osmolar Contrast (ICD-10-PCS; 2017-05-30)
PROC: 0F7D8ZZ Dilation of Pancreatic Duct, Via Natural or Artificial Opening Endoscopic (ICD-10-PCS; 2017-05-30)
DX: K25.4 Chronic or unspecified gastric ulcer with hemorrhage (principal); K80.62 Calculus of gallbladder and bile duct with acute cholecystitis without obstruction; E87.1 Hypo-osmolality and hyponatremia; K22.10 Ulcer of esophagus without bleeding; K76.0 Fatty (change of) liver, not elsewhere classified; G47.00 Insomnia, unspecified; E86.0 Dehydration; D63.8 Anemia in other chronic diseases classified elsewhere; E87.6 Hypokalemia; G89.29 Other chronic pain; K59.00 Constipation, unspecified; M54.5 Low back pain; R74.8 Abnormal levels of other serum enzymes; K29.71 Gastritis, unspecified, with bleeding; Z79.899 Other long term (current) drug therapy; Z87.11 Personal history of peptic ulcer disease; Z23 Encounter for immunization
CPT/HCPCS: 36415; 43235; 71045; 74018; 74176; 74181; 76000; 76705; 78226; 80053; 80074; 80076; 81025; 82150; 82270; 83540; 83550; 83690; 83735; 84100; 84132; 84484; 85014; 85018; 85025; 85610; 85730; 86704; 86706; 86708; 86803; 87340; 93005; 96360; C9113; J2001; J2250; J2405; J2704; J3480; J3490; J7060